=== PATIENT | male | born 1975 | race Caucasian/White ===

== ENCOUNTER 2016-07-25 08:39 | Emergency (ER) | payer OTHER ==
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
[2016-07-25] MEDS ORDERED: DEMEROL IM ONE (09:46)
[2016-07-25] MEDS ORDERED: PHENERGAN IM ONE (09:46)
--- NOTE | 2016-07-25 10:57 | Diag Imaging Result Document ---
PROCEDURE NAME: HEAD/C-SPINE W/O CONTRAST - 07/25/2016 CT BRAIN AND CERVICAL SPINE WITHOUT: TECHNIQUE: Dose-reduction protocol. FINDINGS: No parenchymal hemorrhage. No epidural or subdural hematoma. No subarachnoid hemorrhage. No skull fracture. No hydrocephalus. No mass identified on this noncontrasted exam. There is a large amount of subcutaneous tissues air and sinus opacification. The face will be described on the facial CT. IMPRESSION: No intracranial injury or skull fracture. CT CERVICAL SPINE WITHOUT CONTRAST: FINDINGS: There is mild reversal of the normal curvature. No precervical soft tissue swelling. No subluxation. No fracture. IMPRESSION: No acute bony injury. A preliminary report was given at 10:37 a.m.
--- NOTE | 2016-07-25 11:26 | Diag Imaging Result Document ---
PROCEDURE NAME: ELBOW COMPLETE RIGHT - 07/25/2016 RIGHT ELBOW THREE VIEWS: FINDINGS: No fracture. No dislocation. IMPRESSION: No acute bony injury.
[2016-07-25] MEDS ORDERED: BOOSTRIX VACCINE IM ONE (11:29)
[2016-07-25 11:34] VITALS: BP 136/88
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
== END 2016-07-25 11:54 | disposition home or self-care (01) ==
LOC: P.ED 08:39
DX: S02.401A Maxillary fracture, unspecified side, initial encounter for closed fracture (principal); S02.19XA Other fracture of base of skull, initial encounter for closed fracture; S00.83XA Contusion of other part of head, initial encounter; S00.12XA Contusion of left eyelid and periocular area, initial encounter; S02.5XXA Fracture of tooth (traumatic), initial encounter for closed fracture; S50.311A Abrasion of right elbow, initial encounter; S00.03XA Contusion of scalp, initial encounter; R04.0 Epistaxis; R22.0 Localized swelling, mass and lump, head; H57.10 Ocular pain, unspecified eye; J34.89 Other specified disorders of nose and nasal sinuses; R51 Headache; M25.421 Effusion, right elbow; Z23 Encounter for immunization; Y00.XXXA Assault by blunt object, initial encounter
CPT/HCPCS: 70450; 70486; 72125; 90471; 90715; 96372; J2175; J2550